=== PATIENT | female | born 1980 | race African-American/Black ===

== ENCOUNTER → 2017-04-20 | Outpatient (CLI) | payer BC ==
--- NOTE | 2017-04-20 08:20 | DIAGNOSTIC IMAGING REPORT ---
ABDOMEN LIMITED (US) CLINICAL HISTORY: 36 years-old Female presenting with RUQ PAIN. TECHNIQUE: Real-time grayscale and limited color Doppler ultrasound imaging of the abdomen limited to the right upper quadrant was performed. COMPARISON: None. FINDINGS: Pancreas: Visualized portions of the pancreatic head and body normal. Liver: Normal echogenicity and echotexture. The liver measures 16.7 cm in maximal sagittal dimension. No sonographic evidence of hepatic mass. Main portal vein patent with normal directional flow. Biliary: No intrahepatic biliary ductal dilatation. Common bile duct measures up to 3 mm in diameter. Gallbladder: No evidence of gallstones, gallbladder wall thickening, gallbladder distention, or pericholecystic fluid or inflammatory change. Right kidney: Normal in appearance. No hydronephrosis. Ascites: None. IMPRESSION: Normal right upper quadrant ultrasound. Electronically signed by: Rufus Christensen M.D. 04/20/2017 8:19 AM Dictated Date/Time: 04/20/2017 8:17 AM
== END | disposition home or self-care (01) ==
LOC: C.ULTRBC 07:50
PROVIDERS: ATTEND Nurse Practitioner
DX: R10.11 Right upper quadrant pain (principal)

== ENCOUNTER → 2017-06-08 | Outpatient (CLI) | payer OTHER ==
[~2017-06-08] MED LIST: SINCALIDE INJ 1.4 MCG in SODIUM CHLORIDE 0.9% 100ML 100 ML IV ONE
--- NOTE | 2017-06-08 10:03 | DIAGNOSTIC IMAGING REPORT ---
HEPATOBILIARY EF IMAGING HISTORY: Pain. Nausea. R10.11- RIGHT UPPER QUADRANT PAIN COMPARISON: None. TECHNIQUE: Immediately following the intravenous administration of 5.6 mCi Tc-99m Choletec, dynamic anterior abdominal imaging pre/post 1.4 mcg of Kinevac was performed. FINDINGS: Uniform hepatic tracer accumulation is shown. Prompt intrahepatic biliary excretion is seen. The gallbladder, common bile duct, and small bowel are all visualized by 30 minutes. The gallbladder ejection fraction following administration of Kinevac was 63 % (normal >35%). IMPRESSION: 1. No evidence for cystic duct obstruction. 2. Gallbladder ejection fraction calculated to be 63 %. The above report was generated using voice recognition software. It may contain grammatical, syntax or spelling errors. Electronically signed by: Immanuel Mcneil M.D. 06/08/2017 10:01 AM Dictated Date/Time: 06/08/2017 9:57 AM
== END | disposition home or self-care (01) ==
LOC: C.NUCL 07:36
PROVIDERS: ATTEND Family Medicine
DX: R10.11 Right upper quadrant pain (principal)